=== PATIENT | male | born 2000 | race Two or more races ===

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

== ENCOUNTER 2018-03-24 10:08 | Emergency (ER) | payer MEDICAID, OTHER | END 2018-03-24 11:09 | disposition home or self-care (01) | LOC: M ED 10:08 | DX: J06.9 Acute upper respiratory infection, unspecified (principal) | CPT/HCPCS: 87880 ==